=== PATIENT | female | born 1970 | race Caucasian/White ===

== ENCOUNTER 2018-09-20 06:33 | Day surgery (SDC) | payer BC ==
[2018-09-17 16:43] VITALS: BMI 39.3
[2018-09-20] MEDS ORDERED: ePHEDrine SULFATE 50 MG/1 ML AMPULE ONE (07:17)
[2018-09-20] MEDS ORDERED: PROPOFOL 20 ML ONE (07:17)
[2018-09-20] MEDS ORDERED: KETOROLAC TROMETHAMINE 30 MG/1 ML VIAL ONE (07:18)
[2018-09-20] MEDS ORDERED: DEXAMETHASONE SOD PHOSPHATE 4 MG/1 ML VIAL ONE (07:18)
[2018-09-20] MEDS ORDERED: LIDOCAINE HCL/PF 2% SDV 5ML VIAL ONE (07:18)
[2018-09-20] MEDS ORDERED: ROCURONIUM BROMIDE 50 MG/5 ML VIAL ONE (07:18)
[2018-09-20] MEDS ORDERED: MIDAZOLAM HCL 2 MG/2 ML SINGLE DOSE VIAL ONE (07:18)
[2018-09-20] MEDS ORDERED: SODIUM CHLORIDE 0.9% P/F 10 ML VIAL IJ ONE (07:21)
--- NOTE | 2018-09-20 07:22 | HP ---
[facility] - Chief Complaint Chief Complaint: This patient is here to treat menorrhagia History of Present Illness: This patient has a long history of heavy periods and is here to treat this problem. 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: No: Alzheimer's, CVA, Dementia, Migraine, Multiple Sclerosis, Peripheral Neuropathy, Parkinson's, Seizure, Syncope, TIA, Vertigo, Other Cardiovascular: No: AFIB, Aneurysm, Aortic Insufficiency, Aortic Stenosis, CAD, CHF, Deep Vein Thrombosis, HTN, Hyperlipdemia, FL, Mitral Insufficiency, Mitral Stenosis, Murmur, Pulmonary Hypertension, Other Pulmonary: No: Asthma, Bronchitis, Cancer, COPD, O2 Dependent, Pneumonia, Previously Intubated, Pulmonary Embolus, Pulmonary Fibrosis, Sleep Apnea, Other Gastrointestinal: No: Ascites, Cancer, Constipation, Crohn's Disease, Diverticulitis, Diverticulosis, Esophageal Varices, Gastritis, GERD, GI Bleed, Hemorrhoids, Hiatal Hernia, Inflamatory Bowel Disease, Irritable Bowel Disease, Pancreatitis, Peptic Ulcer Disease, Ulcerative Colitis, Other Hepatobiliary: No: Cirrhosis, Cholelithiasis, Cholecystitis, Choledocholithiasis , Hepatitis A, Hepatitis B, Hepatitis C, Other Renal/: No: Renal Failure, Renal Inusuff, BPH, Cancer, Hematuria, Hemodialysis , Neurogenic Bladder, Renal Calculi, UTI, Other Reproductive: No: Ectopic , Endometriosis, Fibroids, PID, Polycystic Ovary Syndrome, Postmenopausal, Other ...LMP: 09/14/18 ...: No ...: 4 ...Para: 4 Heme/Onc: Yes: Anemia Infectious Disease: No: AIDS, C-Diff, Herpes Zoster, HIV, MRSA, STD's, Tuberculosis, VREF, Other Musculoskeletal: No: Bursitis, Chronic low back pain, Hemiparesis, Hemiplegia, Osteoarthritis, Paraplegia, Other Rheumatology: No: Fibromyalgia, Gout, Lupus, Rheumatoid Arthritis, Sarcoidosis, Vasculitis, Other ENT: No: Allergic Rhinitis, Sinusitis, Other Endocrine: Yes: Diabetes Mellitus - Current Medications Current Medications: Home Medications Medication Instructions Recorded Ferrous Sulfate [Feosol] 325 mg PO BID 03/23/15 Losartan/Hydrochlorothiazide 1 each PO DAILY 03/23/15 [Losartan-Hctz 50-12.5 mg Tab] Satellite Physical Exam - Physical Examination Vital Signs: Vital Signs Period Temp Pulse Resp BP Sys/Christiansen Pulse Ox Last 24 Hr 97.9 F 70 18 127/78 97 General Appearance: Well Nourished, Well Developed, Alert & Oriented x3 ENT: Clear, No Discharge, No masses Lung: Clear to auscultation Heart: Regular rate & rhythm, Normal S1, Normal S2 Breasts: Soft, Non-Tender, No masses bilaterally Abdomen: Soft, No tenderness, No CVA Extremities: No edema, No tenderness/swelling Pelvic Exam: Within normal limits External Genitalia, Within normal limits Vagina, Within normal limits Cervix, Within normal limits Uterus, Within normal limits [employer] Neurological: Intact, Alert, Oriented Satellite Impression/Plan - Impression/Plan Impression: menorrhagia Operative Procedure: D/C and endometrial ablation Date to be Performed: 09/20/18
[2018-09-20] MEDS ORDERED: DESFLURANE GAS 240 ML BOTTLE IH ONE (08:04)
[2018-09-20] MEDS ORDERED: oxyCODONE HCL 5 MG TABLET PO PRN ×2 (09:20)
[2018-09-20] MEDS ORDERED: ONDANSETRON 4 MG/2 ML VIAL IVPUSH PRN (09:20)
[2018-09-20] MEDS ORDERED: LACTATED RINGERS SOLUTION 1,000 ML IV SCH (09:30)
[2018-09-20 10:05] VITALS: TEMP 98.1
[2018-09-20] MEDS ORDERED: ACETAMINOPHEN 1000 MG/100 ML VIAL (NON FORMULARY) IVPB ONE (10:27)
--- NOTE | 2018-09-20 11:32 | OP ---
DATE OF OPERATION: 09/20/2018 DESCRIPTION OF PROCEDURE: The patient was brought to the operating room, given anesthesia, prepped and draped in the usual manner for endometrial ablation, dilation and curettage. There was a delay in doing the procedure because of a defective machine, but after a new machine was brought into the OR by the hydrothermal ablation retail account representative, the procedure was carried out. The patient was prepped and draped in the usual manner. She was examined. The uterus was noted to be anteverted. Adnexa negative. The anterior lip of the cervix was grasped with a tenaculum. The uterus was sounded to 10 cm. The cervix was dilated with Moreno dilators. An endometrial curettage was carried out. This was followed by the endometrial ablation using the hydrothermal ablation procedure. The endometrium was ablated for 10 minutes. The patient tolerated the procedure well. Hemostasis was good. The estimated blood loss was 2 mL. After the procedure was completed, the tenaculum was released from the cervix, and the speculum was released from the vagina. Hemostasis was excellent. The patient did well. The patient was then transferred to the recovery room with stable vital signs. PREOPERATIVE DIAGNOSIS: Menorrhagia. POSTOPERATIVE DIAGNOSIS: Menorrhagia. SURGEON: Ismael Dominguez MD ANESTHESIA: Given by the nurse commodities requirements analyst. ESTIMATED BLOOD LOSS: Approximately 2 mL. Jimena APODACA/[id number]
[2018-09-20] MEDS ORDERED: IBUPROFEN 400 MG TABLET (FP) PO ONE ×2 (13:17→13:27)
[2018-09-20 15:03] VITALS: BP 138/60; PULSE 67
--- NOTE | 2018-09-21 18:29 | PATH ---
Surgical Pathology Report Patient Name: JASON BATIST[facility]. Rec. #: [id number] /Age/Gender: 1970 (Age: 48) / F Account: [id number] Location: [facility] SURGICAL Taken: 09/20/2018 Received: 09/20/2018 Reported: 09/21/2018 Physicians: Ismael Dominguez M.D. Specimen(s) Received ENDOMETRIAL TISSUE Clinical History Menorrhagia Final Diagnosis ENDOMETRIAL CURETTINGS: FRAGMENTS OF PROLIFERATIVE ENDOMETRIUM WITH FOCAL TUBAL METAPLASIA. SEPARATE FRAGMENTS OF UNREMARKABLE ENDOCERVICAL TISSUE. Electronically Signed Cordell Salcido M.D. Gross Description Received in formalin labeled "endometrial curetting," is a 1.2 x 1.2 x 0.3 cm aggregate of maldonado-pink soft tissue fragments admixed with mucus. The formalin is filtered and the specimen is entirely submitted in one cassette. DL/09/20/2018 saudi/09/20/2018
== END 2018-09-20 14:10 | disposition home or self-care (01) ==
LOC: JASU-SURG 06:33
PROVIDERS: ATTEND Obstetrics & Gynecology
PROC: 0U5B7ZZ Destruction of Endometrium, Via Natural or Artificial Opening (ICD-10-PCS; principal; 2018-09-20 07:30)
PROC: 0UDB7ZX Extraction of Endometrium, Via Natural or Artificial Opening, Diagnostic (ICD-10-PCS; 2018-09-20 07:30)
DX: N92.0 Excessive and frequent menstruation with regular cycle (principal)
CPT/HCPCS: 84703; 88305-TC; 94760; J0131